=== PATIENT | male | born 1995 | race African-American/Black ===

== ENCOUNTER 2023-02-28 22:01 | Emergency (ER) | payer OTHER ==
[2023-02-28 22:16] VITALS: BP 145/80; PULSE 66; RESP 18; TEMP 98.1; BMI 29.6
[2023-02-28] MEDS ORDERED: MAG HYDROX/AL HYDROX/SIMETH 30 ML UNIT-DOSE CUP PO ONE (23:45)
[2023-02-28] MEDS ORDERED: FAMOTIDINE 10 MG TABLET PO ONE (23:46)
[2023-02-28] MEDS ORDERED: FAMOTIDINE 10 MG TABLET ONE (23:48)
[2023-02-28] MEDS ORDERED: MAG HYDROX/AL HYDROX/SIMETH 30 ML UNIT-DOSE CUP ONE (23:49)
== END 2023-03-01 00:50 | disposition home or self-care (01) ==
LOC: JER 22:01 → JERFT 22:01 → JER 03-01 00:50
DX: R10.84 Generalized abdominal pain (principal)
CPT/HCPCS: 74018-TC-FY; 99283-25

== ENCOUNTER 2023-10-28 19:40 | Inpatient (IN) | payer OTHER ==
[2023-10-28 19:44] VITALS: BMI 30.4
[2023-10-28] MEDS ORDERED: FAMOTIDINE 20 MG/50 ML IVPB 20 MG/50 ML MG IVPB ONE (20:19)
[2023-10-28] MEDS ORDERED: MAG HYDROX/AL HYDROX/SIMETH 30 ML UNIT-DOSE CUP PO ONE (20:20)
[2023-10-28] MEDS ORDERED: FAMOTIDINE 20 MG TABLET ONE (20:53)
[2023-10-28] MEDS ORDERED: MAG HYDROX/AL HYDROX/SIMETH 30 ML UNIT-DOSE CUP ONE (20:53)
[2023-10-28 20:57] LABS: BASO % 1.3 % (0-2.0); EOS % 15.4 % (0-4.5); HEMOGLOBIN 11.6 GM/dL (11.7-16.9); LYMPH % 35.1 % (8-40); MCH 26.4 pg (25.7-33.7); MCHC 32.1 g/dl (32.0-35.9); MEAN CELL VOLUME 82.2 fl (80-96); MEAN PLT VOLUME 7.9 fl (7.5-11.1); MONO % 6.8 % (3.8-10.2); NEUT % 41.4 % (42.8-82.8); PLATELET COUNT 313 10^3/uL (134-434); RBC 4.38 M/mm3 (4.00-5.60); RDW 14.7 % (11.9-15.9); WHITE BLOOD COUNT 11.1 K/mm3 (4.0-10.0)
[2023-10-28 21:06] LABS: INR 1.04 (0.83-1.09); PROTHROMBIN TIME (PATIENT) 12.1 SEC (9.7-13.0)
[2023-10-28 21:09] LABS: ACTIVATED PTT 33.1 SECONDS (25.2-36.5)
[2023-10-28] MEDS ORDERED: LACTATED RINGERS SOLUTION 1,000 ML/1,000 ML INFUS.BAG IV SCH (21:15)
[2023-10-28 21:17] LABS: POTASSIUM 4.2 mmol/L (3.5-5.1)
[2023-10-28 21:20] LABS: BLOOD UREA NITROGEN 24.6 mg/dL (7-18); CALCIUM 9.4 mg/dL (8.5-10.1)
[2023-10-28 21:23] LABS: CREATININE 1.1 mg/dL (0.55-1.3)
[2023-10-28 21:25] LABS: BILIRUBIN,TOTAL 0.2 mg/dL (0.2-1); TOT PROT 7.1 g/dl (6.4-8.2)
[2023-10-29 00:36] LABS: BASO % 1.7 % (0-2.0); EOS % 17.1 % (0-4.5); HEMATOCRIT 35.9 % (35.4-49); HEMOGLOBIN 11.1 GM/dL (11.7-16.9); LYMPH % 26.2 % (8-40); MCH 26.1 pg (25.7-33.7); MEAN CELL VOLUME 84.3 fl (80-96); MEAN PLT VOLUME 8.1 fl (7.5-11.1); MONO % 5.8 % (3.8-10.2); NEUT % 49.2 % (42.8-82.8); PLATELET COUNT 286 10^3/uL (134-434); RBC 4.26 M/mm3 (4.00-5.60); RDW 14.3 % (11.9-15.9); WHITE BLOOD COUNT 9.7 K/mm3 (4.0-10.0)
[2023-10-29] MEDS ORDERED: PANTOPRAZOLE SODIUM 40 MG VIAL IVPUSH ONE (02:00)
[2023-10-29] MEDS ORDERED: PANTOPRAZOLE SODIUM 40 MG VIAL ONE (02:06)
[2023-10-29] MEDS ORDERED: PANTOPRAZOLE SODIUM 40 MG VIAL IVPUSH SCH ×4 (03:10→14:00)
[2023-10-29] MEDS: SODIUM CHLORIDE 1,000 ML IV SCH ×2 (05:24→15:10)
[2023-10-29] MEDS ORDERED: PANTOPRAZOLE SODIUM 80 MG in SODIUM CHLORIDE 100 ML IVPB SCH (07:30)
[2023-10-29] MEDS ORDERED: PANTOPRAZOLE SODIUM 160 MG in SODIUM CHLORIDE 290 ML IVPB SCH (09:00)
[2023-10-29 10:13] LABS: HEMATOCRIT 35.6 % (35.4-49); HEMOGLOBIN 11.3 GM/dL (11.7-16.9); MCH 26.6 pg (25.7-33.7); MCHC 31.7 g/dl (32.0-35.9); MEAN CELL VOLUME 84.1 fl (80-96); PLATELET COUNT 285 10^3/uL (134-434); RBC 4.24 M/mm3 (4.00-5.60); RDW 14.2 % (11.9-15.9); WHITE BLOOD COUNT 8.4 K/mm3 (4.0-10.0)
[2023-10-29 10:27] LABS: POTASSIUM 4.2 mmol/L (3.5-5.1)
[2023-10-29 10:42] LABS: ALBUMIN 3.8 g/dl (3.4-5.0); BLOOD UREA NITROGEN 17.2 mg/dL (7-18); CALCIUM 9.7 mg/dL (8.5-10.1); MAGNESIUM 2.2 mg/dL (1.8-2.4)
[2023-10-29 10:44] LABS: PHOSPHOROUS 3.6 mg/dL (2.5-4.9)
[2023-10-29 10:45] LABS: BILIRUBIN,TOTAL 0.5 mg/dL (0.2-1); TOT PROT 6.5 g/dl (6.4-8.2)
[2023-10-29] MEDS ORDERED: EPINEPHrine 1:10,000 (P-F SYR) 1 MG/10 ML DISP.SYRIN ONE (12:39)
[2023-10-29] MEDS ORDERED: PROMETHAZINE HCL 25 MG/1 ML VIAL IVPB PRN (13:52)
[2023-10-29] MEDS ORDERED: ONDANSETRON 4 MG/2 ML VIAL IVPUSH PRN (13:52)
[2023-10-29] MEDS ORDERED: LACTATED RINGERS SOLUTION 1,000 ML IV SCH (14:00)
[2023-10-29 16:28] LABS: HEMATOCRIT 35.4 % (35.4-49); HEMOGLOBIN 11.1 GM/dL (11.7-16.9); MCH 26.4 pg (25.7-33.7); MCHC 31.4 g/dl (32.0-35.9); MEAN CELL VOLUME 83.9 fl (80-96); MEAN PLT VOLUME 8.3 fl (7.5-11.1); PLATELET COUNT 261 10^3/uL (134-434); RBC 4.21 M/mm3 (4.00-5.60); RDW 14.7 % (11.9-15.9); WHITE BLOOD COUNT 8.8 K/mm3 (4.0-10.0)
[2023-10-29 20:14] VITALS: RESP 20
[2023-10-29] MEDS: PANTOPRAZOLE 40 MG TABLET PO SCH (22:02)
[2023-10-29 23:20] LABS: HEMATOCRIT 34.3 % (35.4-49); HEMOGLOBIN 10.8 GM/dL (11.7-16.9); MCH 26.1 pg (25.7-33.7); MCHC 31.4 g/dl (32.0-35.9); MEAN CELL VOLUME 83.2 fl (80-96); MEAN PLT VOLUME 7.8 fl (7.5-11.1); PLATELET COUNT 288 10^3/uL (134-434); RBC 4.13 M/mm3 (4.00-5.60); RDW 14.8 % (11.9-15.9); WHITE BLOOD COUNT 8.9 K/mm3 (4.0-10.0)
[2023-10-30 06:32] VITALS: TEMP 97.9
[2023-10-30] MEDS: SODIUM CHLORIDE 1,000 ML IV SCH (07:28)
[2023-10-30] MEDS: PANTOPRAZOLE 40 MG TABLET PO SCH (09:13)
[2023-10-30 09:16] VITALS: BP 147/84; PULSE 72
[2023-10-30 11:23] LABS: EOS % 14.2 % (0-4.5); HEMOGLOBIN 10.7 GM/dL (11.7-16.9); LYMPH % 31.2 % (8-40); MCH 26.3 pg (25.7-33.7); MCHC 31.4 g/dl (32.0-35.9); MEAN CELL VOLUME 83.8 fl (80-96); MEAN PLT VOLUME 8.2 fl (7.5-11.1); MONO % 4.3 % (3.8-10.2); NEUT % 49.3 % (42.8-82.8); PLATELET COUNT 283 10^3/uL (134-434); RBC 4.05 M/mm3 (4.00-5.60); RDW 14.7 % (11.9-15.9); WHITE BLOOD COUNT 7.3 K/mm3 (4.0-10.0)
[2023-10-30 11:31] LABS: POTASSIUM 4.1 mmol/L (3.5-5.1)
[2023-10-30 11:34] LABS: CALCIUM 9.7 mg/dL (8.5-10.1)
[2023-10-30 11:35] LABS: BLOOD UREA NITROGEN 11.9 mg/dL (7-18)
[2023-10-30 11:38] LABS: CREATININE 1.2 mg/dL (0.55-1.3)
== END 2023-10-30 14:14 | disposition home or self-care (01) | DRG 379 ==
LOC: JER 19:40 → JERBED 10-29 02:00 → J8W 10-29 04:30
PROVIDERS: ADMIT Internal Medicine; ATTEND Nurse Practitioner Family
PROC: 0DB68ZX Excision of Stomach, Via Natural or Artificial Opening Endoscopic, Diagnostic (ICD-10-PCS; principal; 2023-10-29 13:00)
DX: K25.4 Chronic or unspecified gastric ulcer with hemorrhage (principal); D64.9 Anemia, unspecified; J45.909 Unspecified asthma, uncomplicated; D72.10 Eosinophilia, unspecified; K26.9 Duodenal ulcer, unspecified as acute or chronic, without hemorrhage or perforation; K29.70 Gastritis, unspecified, without bleeding; K21.9 Gastro-esophageal reflux disease without esophagitis
CPT/HCPCS: 36415; 74174-TC; 80048; 80053; 82272; 82941; 83690; 83735; 84100; 85025; 85027; 85610; 85730; 86850; 86900; 86901; 86922; 88305-TC; 88341-TC; 94760; 99285-25

== ENCOUNTER 2024-08-13 03:48 | Day surgery (SDC) | payer OTHER ==
[2024-08-08 14:04] VITALS: BMI 28.7
[2024-08-13 09:07] VITALS: TEMP 97.9
[2024-08-13 09:20] VITALS: RESP 18
[2024-08-13 10:11] VITALS: BP 119/77; PULSE 74
[2024-08-13 10:16] LABS: BLOOD UREA NITROGEN 14.9 mg/dL (7-18); CALCIUM 9.8 mg/dL (8.5-10.1)
[2024-08-13 10:19] LABS: CREATININE 1.3 mg/dL (0.55-1.3)
== END 2024-08-13 10:11 | disposition home or self-care (01) ==
LOC: JASU-ENDO 03:48
PROVIDERS: ATTEND Internal Medicine Gastroenterology
PROC: 0DB98ZX Excision of Duodenum, Via Natural or Artificial Opening Endoscopic, Diagnostic (ICD-10-PCS; 2024-08-13)
PROC: 0DB78ZX Excision of Stomach, Pylorus, Via Natural or Artificial Opening Endoscopic, Diagnostic (ICD-10-PCS; 2024-08-13)
PROC: 0DB68ZX Excision of Stomach, Via Natural or Artificial Opening Endoscopic, Diagnostic (ICD-10-PCS; 2024-08-13)
PROC: 0DJD8ZZ Inspection of Lower Intestinal Tract, Via Natural or Artificial Opening Endoscopic (ICD-10-PCS; principal; 2024-08-13 08:00)
DX: K64.8 Other hemorrhoids (principal); K44.9 Diaphragmatic hernia without obstruction or gangrene; K22.2 Esophageal obstruction; K29.70 Gastritis, unspecified, without bleeding; K26.9 Duodenal ulcer, unspecified as acute or chronic, without hemorrhage or perforation; D50.9 Iron deficiency anemia, unspecified
CPT/HCPCS: 36415; 80048; 88305-TC; 88341-TC; 88342-TC